=== PATIENT | female | born 1965 | race Caucasian/White ===

== ENCOUNTER → 2017-07-22 | Outpatient (CLI) | payer OTHER ==
[~2017-07-22] MED LIST: BP MED; LIPITOR 20 MG T20 M1 PO; NORCO 5-325 TA1 EACH PO
[2017-07-22 17:26] LABS: ALBUMIN 3.9 g/dL (3.4-5.0); ALKALINE PHOSPHATASE 101 U/L (46-116); CHOLESTEROL 221 mg/dL (<200); DIRECT BILIRUBIN 0.1 mg/dL (<0.1-0.3); HDL CHOLESTEROL 49 mg/dL (>40); LDL CHOLESTEROL 128 mg/dL (<100); SGOT 30 U/L (15-37); SGPT 44 U/L (30-65); TC:HDL 4.5 Ratio (Not establshd); TOTAL BILIRUBIN 0.3 mg/dL (<0.1-1.0); TOTAL PROTEIN 6.8 g/dL (6.4-8.2); TRIGLYCERIDE 221 mg/dL (<150); VLDL 44 mg/dL (<40)
[2017-07-22 17:28] LABS: SERUM ASSESSMENT Clear
== END ==
LOC: M.LAB 16:45
PROVIDERS: Internal Medicine
DX: E78.5 Hyperlipidemia, unspecified (principal)

== ENCOUNTER 2017-07-29 09:17 | Emergency (ER) | payer OTHER ==
[~2017-07-29] VITALS: Ht 154.9 cm; Wt 72.6 kg
[2017-07-29 09:26] VITALS: BP 132/89
[2017-07-29] MEDS ORDERED: LIPITOR 20 MG T20 M1 PO (09:27)
[2017-07-29] MEDS ORDERED: BP MED (09:27)
[2017-07-29] MEDS ORDERED: NORCO 5-325 TA1 EACH PO (10:05)
== END 2017-07-29 10:19 | disposition home or self-care (01) ==
LOC: M.ERS 09:17
DX: S80.02XA Contusion of left knee, initial encounter (principal); I10 Essential (primary) hypertension; E78.00 Pure hypercholesterolemia, unspecified; W01.0XXA Fall on same level from slipping, tripping and stumbling without subsequent striking against object, initial encounter; Y93.89 Activity, other specified; Y92.89 Other specified places as the place of occurrence of the external cause; Y99.8 Other external cause status

== ENCOUNTER → 2017-12-01 | Outpatient (CLI) | payer OTHER ==
[2017-12-01 09:45] LABS: CHOLESTEROL 151 mg/dL (<200); HDL CHOLESTEROL 55 mg/dL (>40); LDL CHOLESTEROL 77 mg/dL (<100); TC:HDL 2.7 Ratio (Not establshd); TRIGLYCERIDE 96 mg/dL (<150); VLDL 19 mg/dL (<40)
[2017-12-01 09:51] LABS: SERUM ASSESSMENT Clear
== END ==
LOC: M.LAB 08:42
PROVIDERS: Internal Medicine
DX: E78.00 Pure hypercholesterolemia, unspecified (principal)

== ENCOUNTER → 2018-09-22 | Outpatient (CLI) | payer OTHER | LOC: M.RAD 15:54 | DX: I70.0 Atherosclerosis of aorta (principal); M54.6 Pain in thoracic spine ==